=== PATIENT | female | born 1935 | race Caucasian/White ===

== ENCOUNTER 2018-12-20 15:48 | Emergency (ER) | payer MEDICARE ==
[2018-12-20] MEDS ORDERED: Adacel (T-DAP) 0.5 ML SYRINGE ONE (16:25)
--- NOTE | 2018-12-20 17:12 | CT ---
CT OF THE BRAIN WITHOUT CONTRAST: Date: 12/20/18 Review of reports from prior [facility] of the head was reviewed. The ventricles are normal in size and show no shift. No intracranial bleeding or extra-axial hematoma seen. No sign of mass, edema, or stroke. No subarachnoid bleeding seen. Skull appears intact. There is some soft tissue swelling in the right supraorbital region of the scalp. The visible paranasal sinuses are clear. IMPRESSION: Atrophy and perhaps some slight chronic ischemic change, but no acute intracranial findings. POS: HOME
== END 2018-12-20 16:55 | disposition home or self-care (01) ==
LOC: BURERS 15:48
DX: S01.81XA Laceration without foreign body of other part of head, initial encounter (principal); I10 Essential (primary) hypertension; Z79.899 Other long term (current) drug therapy; Z86.73 Personal history of transient ischemic attack (TIA), and cerebral infarction without residual deficits; Z79.82 Long term (current) use of aspirin; W01.0XXA Fall on same level from slipping, tripping and stumbling without subsequent striking against object, initial encounter
CPT/HCPCS: 12011; 70450; 90471; 90715